=== PATIENT | male | born 1960 ===

== ENCOUNTER 2024-12-27 11:39 | Emergency (ER) | payer SELFPAY | END 2024-12-27 12:37 | disposition home or self-care (01) | LOC: CSHERS 11:39 | DX: M54.50 Low back pain, unspecified (principal); I25.10 Atherosclerotic heart disease of native coronary artery without angina pectoris; I10 Essential (primary) hypertension; F17.200 Nicotine dependence, unspecified, uncomplicated; X58.XXXA Exposure to other specified factors, initial encounter; Y93.43 Activity, gymnastics | CPT/HCPCS: 99283 ==